=== PATIENT | female | born 1970 | race Two or more races ===

== ENCOUNTER 2020-07-06 07:20 | Emergency (ER) | payer OTHER ==
[~2020-07-06] VITALS: Ht 170.2 cm; Wt 49.9 kg
[2020-07-06] MEDS ORDERED: ATORVASTATIN CA20 MG (07:36)
[2020-07-06] MEDS ORDERED: NADOLOL20 MG (07:36)
[2020-07-06] MEDS ORDERED: TESTIM5 GM (07:37)
[2020-07-06] MEDS ORDERED: THYROID (07:37)
== END 2020-07-06 11:28 | disposition home or self-care (01) ==
LOC: ER 07:20
DX: K62.5 Hemorrhage of anus and rectum (principal); S02.2XXA Fracture of nasal bones, initial encounter for closed fracture; W18.09XA Striking against other object with subsequent fall, initial encounter; Y93.89 Activity, other specified; Y92.238 Other place in hospital as the place of occurrence of the external cause; Y99.8 Other external cause status; Z03.818 Encounter for observation for suspected exposure to other biological agents ruled out